=== PATIENT | male | born 1995 | race Caucasian/White ===

== ENCOUNTER 2016-12-18 19:37 | Emergency (ER) | payer OTHER ==
[2016-12-18 19:56] VITALS: BP 158/100
[2016-12-18] MEDS ORDERED: Lidocaine 1% MPF* 2 ML VIAL INJ ONE (20:13)
[2016-12-18] MEDS ORDERED: Cephalexin CAP* 500 MG PO ONE (20:40)
--- NOTE | 2016-12-18 21:00 | UC ---
Laceration HPI - HPI Summary HPI Summary: METAL POST FROM TENT CANOPY CUT INTO PALM OF RIGHT HAND AT 1300PM. TETANUS <5 YRS AGO. NO OTHER INJURIES. - History Of Current Complaint Chief Complaint: UCLaceration Stated Complaint: LACERATION WRIST Time Seen by Provider: 12/18/16 19:51 Hx Obtained From: Patient, Family/Smt Technician Laceration Location: Hand - RIGHT Mechanism Of Injury: Sharp Trauma Onset/Duration: Sudden Onset, Lasting Hours, Still Present Severity: Mild Aggravating Factors: Nothing Related History: Dominant Hand Right - Allergies/Home Medications Allergies/Adverse Reactions: Allergies Allergy/AdvReac Type Severity Reaction Status Date / Time No Known Allergies Allergy Verified 12/18/16 19:55 PMH/Surg Hx/FS Hx/Imm Hx Previously Healthy: Yes Endocrine History Of: Denies: Diabetes, Thyroid Disease Cardiovascular History Of: Reports: Hypertension Denies: Cardiac Disorders Respiratory History Of: Denies: COPD, Asthma GI/ History Of: Denies: Ulcer - Surgical History Surgical History: None - Family History Known Family History: Negative: Blood Disorder - Social History Occupation: Employed Full-time Lives: With Family Alcohol Use: None Substance Use Type: None Smoking Status (MU): Former Smoker Type: Cigarettes Amount Used/How Often: 5-6 a day Have You Smoked in the Last Year: Yes Household Exposure Type: Cigarettes Review of Systems Constitutional: Negative Skin: Other - LACERATION RIGHT HAND Eyes: Negative ENT: Negative Respiratory: Negative Cardiovascular: Negative Gastrointestinal: Negative Genitourinary: Negative Motor: Negative Neurovascular: Negative Musculoskeletal: Negative Neurological: Negative Psychological: Negative All Other Systems Reviewed And Are Negative: Yes Physical Exam Triage Information Reviewed: Yes Appearance: Well-Appearing, No Pain Distress, Well-Nourished Vital Signs: Initial Vital Signs Temp 99.0 F 12/18/16 19:52 Pulse 98 12/18/16 19:52 Resp 16 12/18/16 19:52 BP 158/100 12/18/16 19:52 Pulse Ox 100 12/18/16 19:52 Vital Signs Reviewed: Yes Eye Exam: Normal Eyes: Positive: Conjunctiva Clear ENT Exam: Normal ENT: Positive: Normal ENT inspection, Hearing grossly normal, Pharynx normal, TMs normal Dental Exam: Normal Neck exam: Normal Neck: Positive: Supple, Nontender, No Lymphadenopathy Respiratory Exam: Normal Respiratory: Positive: Chest non-tender, Lungs clear, Normal breath sounds, No respiratory distress Cardiovascular Exam: Normal Cardiovascular: Positive: RRR, No Murmur Abdominal Exam: Normal Musculoskeletal Exam: Normal Musculoskeletal: Positive: Strength Intact, ROM Intact Neurological Exam: Normal Psychological Exam: Normal Psychological: Positive: Normal Response To Family Skin: Positive: Other - RIGHT HAND LACERATION Laceration Repair - Laceration Repair 1 Description: Linear - 1.2 CM Laceration Size After Repair: Length (cm) - 1.2, Width (mm) - 4, Depth (mm) - 6 Modified For Repair: Yes Type Injection: Local Anesthesia Used: 1.0% Lido Cleansing Completed Via Routine Prep: Yes Irrigation With Pressure Irrigation Device: Yes Closure Material: Sutures - 3 X 4-0 Suture Of: Skin, SQ Laceration Course/Dx - Differential Dx - Laceration/Wound Differental Diagnoses: Cellulitis, Foreign Body, Laceration, Tendon Laceration Provider Diagnoses: LACERATION OF RIGHT HAND WITH SUTURE REPAIR Discharge - Discharge Plan Condition: Stable Disposition: HOME Prescriptions: Cephalexin CAP* [Keflex CAP*] 500 mg PO TID #15 cap Patient Education Materials: Care For Your Stitches (ED), Laceration (ED) Referrals: Pj Brock MD [Primary Care Provider] - Additional Instructions: PLEASE HAVE SUTURES REMOVED IN TEN DAYS Images Hands: 1 - LACERATION HERE
== END 2016-12-18 21:03 | disposition home or self-care (01) ==
LOC: UCEAST 19:37
DX: S61.411A Laceration without foreign body of right hand, initial encounter (principal); W45.8XXA Other foreign body or object entering through skin, initial encounter; Y93.9 Activity, unspecified; Y92.9 Unspecified place or not applicable; I10 Essential (primary) hypertension; Z87.891 Personal history of nicotine dependence
CPT/HCPCS: 12001; 12031; 99212; A9270-GY; G0463

== ENCOUNTER 2018-01-04 19:38 | Emergency (ER) | payer OTHER ==
--- NOTE | 2018-01-04 20:53 | UC ---
Dental HPI - HPI Summary HPI Summary: 22 y/o male presents to the urgent care accompany by father c/o left lower jaw pain for the past 2 days. Pt states pain is sharp 6/10 radiating to the left side of neck. Pt states he has severe cavities on that side. He doesn't have a Dentist. Pt took Tylenol PO 500mg PO today at 1600pm to alleviate symptoms. Pt denies fever, trismus, FLORES, dizziness, abdominal pain, N/V/D. Pt states he has Hx of HTN , but can't recall the name of his BP medication. - History of Current Complaint Hx Obtained From: Patient, Family/Tissue Technician - father Onset/Duration: Gradual Onset, Lasting Days - 2 days, Still Present, Worse Since - today Severity: Moderate Pain Intensity: 8 Pain Scale Used: 0-10 Numeric Aggravating Factor(s): Cold, Chewing Alleviating Factor(s): OTC Meds <Pippa Herron - Last Filed: 01/04/18 21:46> <Roma Maharaj - Last Filed: 01/05/18 07:05> - History of Current Complaint Chief Complaint: UCDentalProblem Stated Complaint: TOOTHE ACHE Time Seen by Provider: 01/04/18 20:50 - Allergies/Home Medications Allergies/Adverse Reactions: Allergies Allergy/AdvReac Type Severity Reaction Status Date / Time No Known Allergies Allergy Verified 01/04/18 19:52 Home Medications: Home Medications Acetaminophen TAB* [Tylenol TAB*] 500 mg PO PRN 01/04/18 [History] PMH/Surg Hx/FS Hx/Imm Hx Previously Healthy: Yes Cardiovascular History: Hypertension - Surgical History Surgical History: None - Family History Known Family History: Positive: Cardiac Disease, Hypertension Negative: Blood Disorder - Social History Occupation: Employed Full-time Lives: With Family Alcohol Use: None Substance Use Type: None Smoking Status (MU): Former Smoker Type: Cigarettes Amount Used/How Often: 5-6 a day Have You Smoked in the Last Year: Yes Household Exposure Type: Cigarettes <Pippa Herron - Last Filed: 01/04/18 21:46> Review of Systems Constitutional: Negative Skin: Negative Eyes: Negative ENT: Dental Pain - left lower jaw pain and cavities Respiratory: Negative Cardiovascular: Negative Gastrointestinal: Negative Genitourinary: Negative Motor: Negative Neurovascular: Negative Musculoskeletal: Negative Neurological: Negative Psychological: Negative Is Patient Immunocompromised?: No All Other Systems Reviewed And Are Negative: Yes <Pippa Herron - Last Filed: 01/04/18 21:46> Physical Exam - Summary Physical Exam Summary: Vital Signs Reviewed: Yes General: well developed. well nourished male sitting in the examining table w/o any apparent distress Eyes: Positive: Conjunctiva Clear - PERRLA, EOMI, fundi grossly normal ENT: Positive: Normal ENT inspection, Hearing grossly normal, Pharyngeal erythema, TMs normal, Uvula midline. Negative: Tonsillar swelling, Tonsillar exudate, Trismus Dental: Positive: Percussion Tenderness @ - molar 18,19, Gross Decay/Caries @ - molar 18,19, Abscess @ - molar 19, Cervical Lymphadenopathy - B/L anterior, Neck: Positive: Supple, Nontender Respiratory: Positive: Chest non-tender, Lungs clear, Normal breath sounds, No respiratory distress Cardiovascular: Positive: RRR, No Murmur, Pulses Normal, Brisk Capillary Refill Abdomen Description: Positive: Nontender, No Organomegaly, Soft. Negative: CVA Tenderness (R), CVA Tenderness (L) Bowel Sounds: Positive: Present Musculoskeletal: Positive: Strength Intact, ROM Intact, No Edema Neurological Exam: Normal Psychological Exam: Normal Skin Exam: Normal Triage Information Reviewed: Yes Vital Signs: Initial Vital Signs Temp 98.9 F 01/04/18 19:46 Pulse 79 01/04/18 19:46 Resp 16 01/04/18 19:46 BP 159/106 01/04/18 19:46 Pulse Ox 99 01/04/18 19:46 <Pippa Herron - Last Filed: 01/04/18 21:46> Vital Signs: Initial Vital Signs Temp 98.9 F 01/04/18 19:46 Pulse 79 01/04/18 19:46 Resp 16 01/04/18 19:46 BP 159/106 01/04/18 19:46 Pulse Ox 99 01/04/18 19:46 <Roma Maharaj - Last Filed: 01/05/18 07:05> Dental Complaint Course/Dx - Course Course Of Treatment: 22 y/o male presents to the urgent care accompany by father c/o left lower jaw pain for the past 2 days. Pt states pain is sharp 6/ 10 radiating to the left side of neck. Pt states he has severe cavities on that side. He doesn't have a Dentist. Pt took Tylenol PO 500mg PO today at 1600pm to alleviate symptoms. Pt denies fever, trismus, FLORES, dizziness, abdominal pain, N/V/D. Pt states he has Hx of HTN , but can't recall the name of his BP medication.Hx obtained. Pt with dental abscess at molar #18 and gross decay on ,olar 18 and 19 on examination. Pt given viscous Lidocaine, Ibuproifen Po and first dose of clindamycin PO at the clinic to alleviate symptoms. Pt tolerated well medication. Rx Same medication and sent to pharmacy. Father and Pt strongly advised to f/u with Dentist from list provided as soon as possible further evaluation and treatment. Pt's BP is elevated today advised to decrease salt in diet, monitor BP and f/u with PCP for further management. Father and Pt understood and agreed with plan of care. Left the clinic ambulating. - Differential Dx/Diagnosis Differential Diagnosis/Dx: Dental Abscess, Dental Caries, Fractured Tooth, Odontogenic Pain, Peridontic Disease Provider Diagnoses: 1- Dental abscess at molar #18. 2-Gross decay at molar 18, 19. 3- Uncontrolled HTN <Pippa Herron - Last Filed: 01/04/18 21:46> Discharge - Sign-Out/Discharge Documenting (check all that apply): Discharge/Admit/Transfer - D/C home - Billing Disposition and Condition Condition: STABLE Disposition: Home <Pippa Herron - Last Filed: 01/04/18 21:46> - Billing Disposition and Condition Condition: STABLE Disposition: Home <Roma Maharaj - Last Filed: 01/05/18 07:05> - Discharge Plan Condition: Stable Disposition: HOME Prescriptions: Clindamycin Cap(NF) [Clindamycin Cap 300 mg Cap(NF)] 300 mg PO TID #28 cap Ibuprofen TAB* [Motrin TAB* 800 MG] 800 mg PO Q6H PRN #30 tab PRN Reason: dental pain Patient Education Materials: Dental Abscess (ED), Low-Sodium Diet (ED) Referrals: [facility] [place] [facility] [Outside] - 3 Days Additional Instructions: 1-Please take full course of antibiotic to avoid resistance. first dose given tonight 2- Take Ibuprofen PO q6-8hrs prn as instructed after meals to alleviate pain and swelling. 3- F/u with your Dentist or Dental List provided as soon as possible for further treatment. 4- If symptoms do not improve or worsen please return to the urgent care or f/u with your PCP 2-3 days for further evaluation and treatment 5- Your BP is elevated today. please decrease salt in your diet, monitor BP and if it continues to be elevated please f/u with your PCP for further management on your HTN Attestation Statement User Type: Provider - I was available for consult. This patient was seen by the GUILLE. The patient was not presented to, seen by, or examined by me. -Suzanna <Roma Maharaj - Last Filed: 01/05/18 07:05>
[2018-01-04] MEDS ORDERED: Clindamycin CAP* 150 MG PO ONE (21:24)
[2018-01-04] MEDS ORDERED: Lidocaine 2% VISCOUS* 15 ML UDC PO ONE (21:25)
[2018-01-04] MEDS ORDERED: Ibuprofen TAB* 400 MG PO ONE (21:26)
[2018-01-04 21:43] VITALS: BP 145/95
== END 2018-01-04 21:52 | disposition home or self-care (01) ==
LOC: UCEAST 19:38
DX: K04.7 Periapical abscess without sinus (principal); K02.9 Dental caries, unspecified; I10 Essential (primary) hypertension; Z87.891 Personal history of nicotine dependence
CPT/HCPCS: 99213; A9270-GY; G0463

== ENCOUNTER → 2018-11-03 19:25 | Emergency (ER) | payer OTHER ==
[~2018-11-03 19:25] MED LIST: Clindamycin 600 MG/D5W BAG(*) 600 MG/50 ML BAG IV ONE; Ketorolac INJ* 30 MG/ML 1 ML VIAL IV PUSH ONE; Potassium Chlor TAB* 20 MEQ TAB.ER PO ONE
[2018-11-03 21:31] LABS: ABS Basophils 0.1 10^3/ul (0-0.2); ABS Eosinophils 0 10^3/ul (0-0.6); ABS Lymphocytes 1.6 10^3/ul (1.0-4.8); ABS Monocytes 1.4 10^3/ul (0-0.8); ABS Neutrophils 7.9 10^3/ul (1.5-7.7); ABS Nucleated RBC 0 10^3/ul; Eosinophil % 0.2 %; Hematocrit 44 % (36-46); Hemoglobin 15.4 g/dL (14.0-18.0); Lymphocyte % 14.4 %; Mean Corpuscular HGB Conc 35 g/dL (31-36); Mean Corpuscular Hemoglobin 29 pg (27-31); Mean Corpuscular Volume 83 fL (80-94); Mean Platelet Volume 7.3 fL (7.4-10.4); Nucleated Red Blood Cells % 0.4; Platelet Count 252 10^3/uL (150-450); Red Blood Count 5.24 10^6 /uL (4.18-5.48); Red Cell Distribution Width 13 % (10.5-15); White Blood Count 10.9 10^3/uL (3.5-10.8)
[2018-11-03 21:51] LABS: Albumin 4.5 g/dL (3.2-5.2); Albumin/Globulin Ratio 1.1 (1-3); BUN/Creatinine Ratio 12.7 (8-20); Calcium 9.7 mg/dL (8.6-10.3); EGFR African American 147.1 (>60); EGFR Non-African American 121.5 (>60); Potassium 2.9 mmol/L (3.5-5.0); Total Bilirubin 1.4 mg/dL (0.2-1.0); Total Protein 8.5 g/dL (6.4-8.9)
--- NOTE | 2018-11-03 22:02 | ED ---
Throat Pain/Nasal Congestion - HPI Summary HPI Summary: 23-year-old male presents with dental pain for the past couple days. he states the pain is increasing. He is not able to open his jaw all the way due to pain. He denies any fevers. denies any chest pain shortness of breath. He states he not be able to eat much due to the pain. Has been taking the penicillin daily. No drainage. No medical conditions. - History of Current Complaint Chief Complaint: EDDentalPain Time Seen by Provider: 11/03/18 20:13 - Allergies/Home Medications Allergies/Adverse Reactions: Allergies Allergy/AdvReac Type Severity Reaction Status Date / Time No Known Allergies Allergy Verified 11/01/18 06:32 PMH/Surg Hx/FS Hx/Imm Hx Endocrine/Hematology History: Denies: Hx Diabetes, Hx Thyroid Disease Cardiovascular History: Reports: Hx Hypertension Respiratory History: Denies: Hx Asthma, Hx Chronic Obstructive Pulmonary Disease (COPD) GI History: Denies: Hx Ulcer Infectious Disease History: No Infectious Disease History: Denies: Hx Clostridium Difficile, Hx Hepatitis, Hx Human Immunodeficiency Virus (HIV), Hx of Known/Suspected MRSA, Hx Shingles, Hx Tuberculosis, Hx Known/ Suspected VRE, Hx Known/Suspected VRSA, History Other Infectious Disease, Traveled Outside the [place] in Last 30 Days - Family History Known Family History: Positive: Cardiac Disease, Hypertension Negative: Blood Disorder - Social History Alcohol Use: None Substance Use Type: Reports: None Smoking Status (MU): Former Smoker Type: Cigarettes Amount Used/How Often: 5-6 a day Have You Smoked in the Last Year: Yes Review of Systems Negative: Fever Positive: Dental Pain Negative: Chest Pain Negative: Shortness Of Breath All Other Systems Reviewed And Are Negative: Yes Physical Exam Triage Information Reviewed: Yes Vital Signs On Initial Exam: Initial Vitals Temp Pulse Resp BP Pulse Ox 99.8 F 120 18 130/96 96 11/03/18 19:27 11/03/18 19:27 11/03/18 19:27 11/03/18 19:27 11/03/18 19:27 Vital Signs Reviewed: Yes Appearance: Positive: Well-Appearing Skin: Positive: Warm, Dry Head/Face: Positive: Normal Head/Face Inspection Eyes: Positive: Normal, EOMI, RACQUEL, Conjunctiva Clear ENT: Positive: Normal ENT inspection, Pharynx normal, TMs normal, Other - unable to open mouth completely Dental: Positive: Other - edema to right side of jaw, no flutacance Neck: Positive: Tenderness @ - right cervical, Enlarged Nodes @ - right cervical Respiratory/Lung Sounds: Positive: Clear to Auscultation, Breath Sounds Present Cardiovascular: Positive: Normal, RRR Musculoskeletal: Positive: Normal Neurological: Positive: Normal Psychiatric: Positive: Normal Diagnostics - Vital Signs Vital Signs Temp Pulse Resp BP Pulse Ox 11/03/18 19:27 99.8 F 120 18 130/96 96 - Laboratory Lab Results: Lab Results 11/03/18 11/03/18 Range/Units 21:20 21:20 WBC 10.9 H (3.5-10.8) 10^3/uL RBC 5.24 (4.18-5.48) 10^6 /uL Hgb 15.4 (14.0-18.0) g/dL Hct 44 (36-46) % MCV 83 (80-94) fL MCH 29 (27-31) pg MCHC 35 (31-36) g/dL RDW 13 (10.5-15) % Plt Count 252 (150-450) 10^3/uL MPV 7.3 L (7.4-10.4) fL Neut % (Auto) 72.3 % Lymph % (Auto) 14.4 % Bullitt % (Auto) 12.6 % Eos % (Auto) 0.2 % Baso % (Auto) 0.5 % Absolute Neuts (auto) 7.9 H (1.5-7.7) 10^3/ul Absolute Lymphs (auto) 1.6 (1.0-4.8) 10^3/ul Absolute Monos (auto) 1.4 H (0-0.8) 10^3/ul Absolute Eos (auto) 0 (0-0.6) 10^3/ul Absolute Basos (auto) 0.1 (0-0.2) 10^3/ul Absolute Nucleated RBC 0 10^3/ul Nucleated RBC % 0.4 Sodium 132 L (135-145) mmol/L Potassium 2.9 L (3.5-5.0) mmol/L Chloride 93 L (101-111) mmol/L Carbon Dioxide 25 (22-32) mmol/L Anion Gap 14 H (2-11) mmol/L BUN 10 (6-24) mg/dL Creatinine 0.79 (0.67-1.17) mg/dL Est GFR ( Amer) 147.1 (>60) Est GFR (Non-Af Amer) 121.5 (>60) BUN/Creatinine Ratio 12.7 (8-20) Glucose 95 (70-100) mg/dL Calcium 9.7 (8.6-10.3) mg/dL Total Bilirubin 1.40 H (0.2-1.0) mg/dL AST 14 (13-39) U/L ALT 12 (7-52) U/L Alkaline Phosphatase 77 (34-104) U/L Total Protein 8.5 (6.4-8.9) g/dL Albumin 4.5 (3.2-5.2) g/dL Globulin 4.0 (2-4) g/dL Albumin/Globulin Ratio 1.1 (1-3) Result Diagrams: 11/03/18 21:20 11/03/18 21:20 Lab Statement: Any lab studies that have been ordered have been reviewed, and results considered in the medical decision making process. Re-Evaluation - Re-Evaluation First Eval Re-Evaluation Time: 22:01 Change: Improved Comment: able to open jaw completely after toradol EENT Course/Dx - Course Course Of Treatment: 23-year-old male presents with dental pain for the past couple days. he states the pain is increasing. He is not able to open his jaw all the way due to pain. He denies any fevers. denies any chest pain shortness of breath. He states he not be able to eat much due to the pain. Has been taking the penicillin daily. No drainage. No medical conditions. On exam has lymph nodes noted on the right-hand side. Has some edema noted to the right-hand side of face. No fluctuance noted. White blood cell count slightly elevated. gave Toradol now able to open jaw completely. Ultrasound the area and unable to find discrete abscess at this time. Gave dosed by the clindamycin. Will prescribe clindamycin. told follow up with dentist. Patient understands and agrees plan. - Differential Diagnoses Differential Diagnoses: Dental Abscess, Dental Caries, Fractured Tooth - Diagnoses Provider Diagnoses: Dental abscess Discharge - Sign-Out/Discharge Documenting (check all that apply): Patient Departure Patient Received Moderate/Deep Sedation with Procedure: No - Discharge Plan Condition: Good Disposition: HOME Prescriptions: Clindamycin Cap(NF) [Clindamycin Cap 300 mg Cap(NF)] 300 mg PO TID #21 cap Patient Education Materials: Dental Abscess (ED) Referrals: [facility] [place] [facility] [Outside] Additional Instructions: Take clindamycin three times a day for 7 days Take ibuprofen or tyenlol every 6 hours for pain as needed Avoid hard, crunchy food until seen by dentist Return to ED if develop fever or any new or worsening symptoms Establish care with primary care physician and dentist as soon as possible - Billing Disposition and Condition Condition: GOOD Disposition: Home
[2018-11-03 22:18] VITALS: BP 132/76
== END | disposition home or self-care (01) ==
LOC: ED 19:25
DX: K04.7 Periapical abscess without sinus (principal); I10 Essential (primary) hypertension; Z87.891 Personal history of nicotine dependence
CPT/HCPCS: 36415; 80053; 85025; 96365; 96375; 99282; A9270-GY; J1885

== ENCOUNTER 2019-04-19 18:25 | Emergency (ER) | payer OTHER ==
[2019-04-19] MEDS ORDERED: NS 0.9% 1000 ML** 1,000 ML IV ONE ×2 (18:36→18:38)
[2019-04-19] MEDS ORDERED: Ibuprofen TAB* 600 MG PO ONE (18:37)
[2019-04-19 18:54] LABS: ABS Lymphocytes 0.7 10^3/ul (1.0-4.8); ABS Monocytes 0.3 10^3/ul (0-0.8); ABS Neutrophils 8.1 10^3/ul (1.5-7.7); Eosinophil % 0.4 %; Hematocrit 43 % (42-52); Hemoglobin 14.8 g/dL (14.0-18.0); Lymphocyte % 7.9 %; Mean Corpuscular HGB Conc 35 g/dL (31-36); Mean Corpuscular Hemoglobin 30 pg (27-31); Mean Corpuscular Volume 85 fL (80-94); Mean Platelet Volume 7.5 fL (7.4-10.4); Platelet Count 169 10^3/uL (150-450); Red Blood Count 5.02 10^6 /uL (4.18-5.48); Red Cell Distribution Width 13 % (10-15); White Blood Count 9.2 10^3/uL (3.5-10.8)
[2019-04-19 19:14] LABS: Troponin I 0.01 ng/mL (<0.04)
[2019-04-19 19:15] LABS: Albumin 4.4 g/dL (3.2-5.2); Albumin/Globulin Ratio 1.5 (1-3); BUN/Creatinine Ratio 14.8 (8-20); Calcium 8.9 mg/dL (8.6-10.3); EGFR African American 128.7 (>60); EGFR Non-African American 106.4 (>60); Globulin 2.9 g/dL (2-4); Potassium 3.9 mmol/L (3.5-5.0); Total Bilirubin 0.8 mg/dL (0.2-1.0); Total Protein 7.3 g/dL (6.4-8.9)
[2019-04-19] MEDS ORDERED: Amoxicillin/Clavulanate TAB* 875 MG PO ONE (20:31)
[2019-04-19 21:37] LABS: TSH (Thyroid Stimulating Horm) 0.4 mcIU/mL (0.34-5.60)
[2019-04-19 21:40] LABS: Free T4 0.79 ng/dL (0.61-1.12)
[2019-04-19] MEDS ORDERED: Metoprolol Tartrate TAB* 25 MG PO ONE (21:57)
--- NOTE | 2019-04-19 22:07 | ED ---
Complex/Multi-Sys Presentation - HPI Summary HPI Summary: This patient is a 24 year old M presenting to [facility] with a chief complaint of chest pain and back pain since 1700. Patient states that he was at work shoveling dirt and stones when he hurt his back and began to experience CP. The patient rates the pain 0/10 in severity. Symptoms aggravated by nothing. Symptoms alleviated by noting. Patient reports weakness, SOB, knee pain and dental pain. Patient denies cough, fever and chills. Patient states that he forgot to take his BP medication because he was late for work. Patient states he takes Hygroton 25 mg. Patient denies any SHx and PMHx. Patient denies tobacco use and substance abuse. Allergies Allergy/AdvReac Type Severity Reaction Status Date / Time No Known Allergies Allergy Verified 11/01/18 06:32 Home Medications Medication Instructions Recorded Confirmed Type Acetaminophen [Tylenol Extra 1,000 mg PO Q6HR PRN 04/19/19 04/19/19 History Strength] Amoxicillin/Clavulanate TAB* 875 mg PO BID #20 tab 04/19/19 Rx [Augmentin TAB 875*] Chlorthalidone TAB* [Hygroton TAB*] 25 mg PO DAILY 04/19/19 04/19/19 History - History Of Current Complaint Chief Complaint: EDChestPainROMI Time Seen by Provider: 04/19/19 18:28 Hx Obtained From: Patient Onset/Duration: Sudden Onset Timing: Constant Severity Initially: Mild Character: Sharp Associated Signs And Symptoms: Positive: Weakness, SOB, Chest Pain, Back Pain, Other - dental pain. Negative: Cough, Nausea, Fever - Allergies/Home Medications Allergies/Adverse Reactions: Allergies Allergy/AdvReac Type Severity Reaction Status Date / Time No Known Allergies Allergy Verified 11/01/18 06:32 Home Medications: Home Medications Acetaminophen [Tylenol Extra Strength] 1,000 mg PO Q6HR PRN 04/19/19 [History Confirmed 04/19/19] Chlorthalidone TAB* [Hygroton TAB*] 25 mg PO DAILY 04/19/19 [History Confirmed 04/19/19] PMH/Surg Hx/FS Hx/Imm Hx Endocrine/Hematology History: Denies: Hx Diabetes, Hx Thyroid Disease Cardiovascular History: Reports: Hx Hypertension Respiratory History: Denies: Hx Asthma, Hx Chronic Obstructive Pulmonary Disease (COPD) GI History: Denies: Hx Ulcer - Immunization History Immunizations Up to Date: Yes Infectious Disease History: No Infectious Disease History: Denies: Hx Clostridium Difficile, Hx Hepatitis, Hx Human Immunodeficiency Virus (HIV), Hx of Known/Suspected MRSA, Hx Shingles, Hx Tuberculosis, Hx Known/ Suspected VRE, Hx Known/Suspected VRSA, History Other Infectious Disease, Traveled Outside the [place] in Last 30 Days - Family History Known Family History: Positive: Cardiac Disease, Hypertension Negative: Blood Disorder - Social History Alcohol Use: None Substance Use Type: Reports: None Smoking Status (MU): Former Smoker Type: Cigarettes Amount Used/How Often: 5-6 a day Have You Smoked in the Last Year: Yes Review of Systems Negative: Fever, Chills Positive: Chest Pain Positive: Shortness Of Breath. Negative: Cough Negative: Nausea Positive: Other - low back pain Positive: Weakness All Other Systems Reviewed And Are Negative: Yes Physical Exam - Summary Physical Exam Summary: Constitutional: Well-developed, Well-nourished, Alert. (-) Distressed Skin: Warm, Dry HENT: Normocephalic; Atraumatic Eyes: Conjunctiva normal Neck: Musculoskeletal ROM normal neck. (-) JVD, (-) Stridor, (-) Tracheal deviation Cardio: Tachycardic, Heart sounds normal; Intact distal pulses; The pedal pulses are 2+ and symmetric. Radial pulses are 2+ and symmetric. (-) Murmur Pulmonary/Chest wall: Effort normal. (-) Respiratory distress, (-) Wheezes, (-) Rales Abd: Soft, (-) tenderness, (-) Distension, (-) Guarding, (-) Rebound Musculoskeletal: (-) Edema, lower bilateral strength 5/5 Lymph: (-) Cervical adenopathy Neuro: Alert, Oriented x3 Psych: Mood and affect Normal Triage Information Reviewed: Yes Vital Signs On Initial Exam: Initial Vitals Temp Pulse Resp BP Pulse Ox 99.3 F 120 19 160/102 98 04/19/19 18:26 04/19/19 18:26 04/19/19 18:26 04/19/19 18:26 04/19/19 18:26 Vital Signs Reviewed: Yes Diagnostics - Vital Signs Vital Signs Temp Pulse Resp BP Pulse Ox 04/19/19 21:00 113 137/98 97 04/19/19 20:30 115 147/95 96 04/19/19 20:00 112 139/91 96 04/19/19 19:30 107 147/96 97 04/19/19 19:25 111 164/105 97 04/19/19 18:31 117 160/102 98 04/19/19 18:26 99.3 F 120 19 160/102 98 - Laboratory Lab Results: Lab Results 04/19/19 04/19/19 04/19/19 Range/Units 18:48 18:48 18:48 WBC 9.2 (3.5-10.8) 10^3/uL RBC 5.02 (4.18-5.48) 10^6 /uL Hgb 14.8 (14.0-18.0) g/dL Hct 43 (42-52) % MCV 85 (80-94) fL MCH 30 (27-31) pg MCHC 35 (31-36) g/dL RDW 13 (10-15) % Plt Count 169 (150-450) 10^3/uL MPV 7.5 (7.4-10.4) fL Neut % (Auto) 88.5 % Lymph % (Auto) 7.9 % Ramsey % (Auto) 2.9 % Eos % (Auto) 0.4 % Baso % (Auto) 0.3 % Absolute Neuts (auto) 8.1 H (1.5-7.7) 10^3/ul Absolute Lymphs (auto) 0.7 L (1.0-4.8) 10^3/ul Absolute Monos (auto) 0.3 (0-0.8) 10^3/ul Absolute Eos (auto) 0.0 (0-0.6) 10^3/ul Absolute Basos (auto) 0.0 (0-0.2) 10^3/ul Absolute Nucleated RBC 0.0 10^3/ul Nucleated RBC % 0.0 Sodium 138 (135-145) mmol/L Potassium 3.9 (3.5-5.0) mmol/L Chloride 106 (101-111) mmol/L Carbon Dioxide 25 (22-32) mmol/L Anion Gap 7 (2-11) mmol/L BUN 13 (6-24) mg/dL Creatinine 0.88 (0.67-1.17) mg/dL Est GFR ( Amer) 128.7 (>60) Est GFR (Non-Af Amer) 106.4 (>60) BUN/Creatinine Ratio 14.8 (8-20) Glucose 101 H (70-100) mg/dL Lactic Acid 0.9 (0.5-2.0) mmol/L Calcium 8.9 (8.6-10.3) mg/dL Total Bilirubin 0.80 (0.2-1.0) mg/dL AST 21 (13-39) U/L ALT 18 (7-52) U/L Alkaline Phosphatase 64 (34-104) U/L Troponin I 0.01 (<0.04) ng/mL Total Protein 7.3 (6.4-8.9) g/dL Albumin 4.4 (3.2-5.2) g/dL Globulin 2.9 (2-4) g/dL Albumin/Globulin Ratio 1.5 (1-3) TSH 0.40 (0.34-5.60) mcIU/mL Free T4 0.79 (0.61-1.12) ng/dL Result Diagrams: 04/19/19 18:48 04/19/19 18:48 Lab Statement: Any lab studies that have been ordered have been reviewed, and results considered in the medical decision making process. - EKG 1837 Cardiac Rate: Tachycardia - 112 bpm EKG Rhythm: Sinus Tachycardia Summary of EKG Findings: EKG reveal sinus tachycardia 112 bpm with no STEMI. Complex Multi-Symp Course/Dx Course Of Treatment: This patient is a 24 year old M presenting to [facility] with a chief complaint of chest pain and back pain since 1700. EKG reveal sinus tachycardia 112 bpm with no STEMI. Test results with no significant abnormalities except for Absolute Neuts 8.1, Absolute Lymphs 0.7, Glucose 101. In the ED course the patient was given Augmentin 875, Motrin 600 mg, Lopressor 25 mg, 2 bags of IV fluid. Dr. Bender states that patients tachycardia may be his baseline (reviewed his prior visits). Patients last two Troponin came back negative. Patient will be discharged and follow up with Kristina Montenegro MANAGER STATISTICS. - Diagnoses Provider Diagnoses: Pain, dental, Chest pain, Hypertension, Noncompliance with medication regimen Discharge ED - Sign-Out/Discharge Documenting (check all that apply): Patient Departure - discharge Patient Received Moderate/Deep Sedation with Procedure: No - Discharge Plan Condition: Stable Disposition: HOME Prescriptions: Amoxicillin/Clavulanate TAB* [Augmentin TAB 875*] 875 mg PO BID #20 tab Patient Education Materials: Chest Pain (ED), Hypertension (ED), Toothache (ED) Referrals: Esequiel Montenegro, MANAGER STATISTICS [Nurse Practitioner] - 2 Days Additional Instructions: REMEMBER TO TAKE YOUR MEDICATIONS DAILY. RETURN TO ER FOR CHANGING/WORSENING SYMPTOMS - Attestation Statements Document Initiated by Scribe: Yes Documenting Scribe: Apolonia Miramontes Provider For Whom Scribe is Documenting (Include Credential): Dr. Erik Bender MD Scribe Attestation: Apolonia May scribed for Dr. Erik Bender MD on 04/19/19 at 2314. Status of Scribe Document: Ready
[2019-04-19 22:45] VITALS: BP 131/84
== END 2019-04-19 22:55 | disposition home or self-care (01) ==
LOC: ED 18:25
DX: R07.9 Chest pain, unspecified (principal); K08.89 Other specified disorders of teeth and supporting structures; I10 Essential (primary) hypertension; Z91.14 Patient's other noncompliance with medication regimen; Z79.899 Other long term (current) drug therapy; Z87.891 Personal history of nicotine dependence
CPT/HCPCS: 36415; 71045; 80053; 83605; 84439; 84443; 84484; 85025; 85379; 93005; 96360; 96361; 99282; A9270-GY

== ENCOUNTER 2019-06-27 18:17 | Emergency (ER) | payer OTHER ==
--- NOTE | 2019-06-27 18:49 | UC ---
Dental HPI - HPI Summary HPI Summary: 24 yo with 3 days of right lower jaw swelling and pain, with known tooth needing dental treatment. Infection treated in October 2018, initially with penVK , followed by clindamycin when there was no response to the initial treatment. - History of Current Complaint Stated Complaint: DENTAL PAIN Time Seen by Provider: 06/27/19 18:48 Hx Obtained From: Patient Onset/Duration: Gradual Onset, Lasting Days - 3 Severity: Moderate Aggravating Factor(s): Chewing Alleviating Factor(s): OTC Meds - little response to acetaminophen Related History: Previous Dental Care on Same Tooth - Allergies/Home Medications Allergies/Adverse Reactions: Allergies Allergy/AdvReac Type Severity Reaction Status Date / Time No Known Allergies Allergy Verified 06/27/19 19:05 PMH/Surg Hx/FS Hx/Imm Hx Cardiovascular History: Hypertension - Surgical History Surgical History: None - Family History Known Family History: Positive: Cardiac Disease, Hypertension Negative: Blood Disorder - Social History 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 Alcohol Use: None Substance Use Type: None Smoking Status (MU): Former Smoker Type: Cigarettes Amount Used/How Often: 5-6 a day Have You Smoked in the Last Year: Yes Household Exposure Type: Cigarettes Review of Systems All Other Systems Reviewed And Are Negative: Yes Constitutional: Positive: Fatigue Skin: Positive: Negative ENT: Positive: Dental Pain Respiratory: Positive: Negative Cardiovascular: Positive: Negative Gastrointestinal: Positive: Negative Genitourinary: Positive: Negative Motor: Positive: Negative Neurovascular: Positive: Negative Musculoskeletal: Positive: Negative Neurological: Positive: Negative Psychological: Positive: Negative Is Patient Immunocompromised?: No Physical Exam Triage Information Reviewed: Yes Appearance: Well-Appearing, Well-Nourished, Pain Distress - moderate Eyes: Positive: Conjunctiva Clear ENT: Positive: Pharynx normal, TMs normal Dental: Positive: Percussion Tenderness @ - 30, Abscess @ - 30 Neck: Positive: Supple, Nontender, No Lymphadenopathy Respiratory: Positive: Lungs clear, Normal breath sounds Cardiovascular: Positive: RRR, No Murmur Musculoskeletal Exam: Normal Neurological Exam: Normal Psychological Exam: Normal Skin Exam: Normal Images Dental: 1 - abscess along gum line Dental Complaint Course/Dx - Course Course Of Treatment: begin treatment with clindamycin for dental abscess. His confirms that dental follow up is pending. - Differential Dx/Diagnosis Differential Diagnosis/Dx: Dental Abscess, Dental Caries, Fractured Tooth Provider Diagnosis: Dental abscess Discharge ED - Sign-Out/Discharge Documenting (check all that apply): Patient Departure All imaging exams completed and their final reports reviewed: No Studies - Discharge Plan Condition: Stable Disposition: HOME Prescriptions: Clindamycin Cap(NF) [Clindamycin Cap 300 mg Cap(NF)] 300 mg PO QID #28 cap Patient Education Materials: Dental Abscess (ED) Referrals: Esequiel Montenegro NP [Primary Care Provider] - Additional Instructions: Begin clindamycin for treatment of abscess. Ensure that you schedule a dental follow up as soon as possible. Use ibuprofen 600mg alternately with acetaminophen 650mg (each can be taken every 6 hours, so you can take them alternately every 3 hours until you have relief with the use of the antibiotic. - Billing Disposition and Condition Condition: STABLE Disposition: Home
[2019-06-27 19:05] VITALS: BP 150/78
== END 2019-06-27 20:00 | disposition home or self-care (01) ==
LOC: UCEAST 18:17
DX: K04.7 Periapical abscess without sinus (principal); R53.83 Other fatigue; I10 Essential (primary) hypertension; Z87.891 Personal history of nicotine dependence
CPT/HCPCS: 99212; G0463